=== PATIENT | male | born 1995 | race African-American/Black ===

== ENCOUNTER 2023-01-22 08:28 | Emergency (ER) | payer BC, MEDICAID ==
[~2023-01-22] VITALS: Ht 180.3 cm; Wt 82.0 kg
[2023-01-22 08:42] VITALS: BP 104/62
== END 2023-01-22 16:46 | disposition left against medical advice (07) ==
LOC: ER 08:28
DX: Z53.21 Procedure and treatment not carried out due to patient leaving prior to being seen by health care provider (principal)